=== PATIENT | female | born 1975 | race Caucasian/White ===

== ENCOUNTER 2020-05-15 20:01 | Emergency (ER) | payer OTHER ==
[~2020-05-15] VITALS: Ht 160 cm; Wt 79.4 kg
[~2020-05-15 20:01] MED LIST: ACYCLOVIR800 MG PO; ALBUTEROL0.09 MG/A2 INH; AMOXICILLIN500 MG PO; FLEXERIL10 MG PO; MOTRIN800 MG PO; PAXIL40 MG PO; PREDNICOT20 MG PO; TESSALON PERLE200 MG PO; VICODIN 5/500 505 MG PO; ZOVIRAX51 TP
[2020-05-15 20:10] VITALS: BP 150/89
[2020-05-15] MEDS ORDERED: ROBAXIN-750750 MG PO (21:54)
[2020-05-15] MEDS ORDERED: NAPROXEN250 MG PO (21:54)
== END 2020-05-15 21:58 | disposition home or self-care (01) ==
LOC: ED 20:01
DX: S16.1XXA Strain of muscle, fascia and tendon at neck level, initial encounter (principal); J45.909 Unspecified asthma, uncomplicated; F41.9 Anxiety disorder, unspecified; Z88.5 Allergy status to narcotic agent; Z79.899 Other long term (current) drug therapy; V89.2XXA Person injured in unspecified motor-vehicle accident, traffic, initial encounter; Y93.89 Activity, other specified; Y92.89 Other specified places as the place of occurrence of the external cause; Y99.8 Other external cause status